=== PATIENT | female | born 1960 | race Caucasian/White ===

== ENCOUNTER 2016-10-02 06:00 | Inpatient (IN) | payer MEDICAID ==
[~2016-10-02] VITALS: Ht 167.6 cm; Wt 73.5 kg
[~2016-10-02 06:00] MED LIST: CIPRO500 MG PO; FOLIC ACID1 MG PO; IBUPROFEN800 MG PO; LIORESAL 10 MG10 MG PO; LIPITOR40 MG PO; METHOTREXATE2.5 MG PO; MOBIC7.5 MG PO; OXYCONTIN10 MG PO; PREDNISONE20 MG PO; VALIUM5 MG PO
--- NOTE | 2016-10-02 07:18 | NUR ---
PT ct's were delayed due to wanting labs and resp and xrays done first
--- NOTE | 2016-10-02 07:29 | NUR ---
PT'S CT OF ABD/PEL WITH CONTRAST DELEYED FURTHER DUE TO POOR IV ACCESS. WAITING FOR RN TO START NEW IV
[2016-10-02 08:46] LABS: BASOPHILS 0.1 % (0.0-2.0); EOSINOPHILS 0.4 % (0-7); HEMATOCRIT 28.7 % (36.0-48.0); IMMATURE GRANULOCYTES 0.3 % (0-5); LYMPHOCYTES 10.3 % (15-50); MCH 43.2 pg (26.0-34.0); MCHC 48.8 g/dL (31.0-37.0); MCV 88.6 fL (80.0-100.0); MEAN PLATELET VOLUME 8.9 fL (7.4-10.4); MONOCYTES 5.1 % (2-11); NEUTROPHILS 83.8 % (40-80); RBC 3.24 10x6/uL (4.00-5.40); RDW 14.4 % (11.5-14.5); WBC 10.5 10x3/uL (4.8-10.8)
[2016-10-02 08:47] LABS: PLATELET COUNT 146 10x3/uL (130-400)
[2016-10-02 08:59] LABS: CALC OSMOLALITY 285 mosm/kg (275-300); CALCIUM 8.9 mg/dL (8.5-10.1); CARBON DIOXIDE 17.5 mmol/L (21.0-32.0); CHLORIDE - SERUM 104 mmol/L (98-107); CREATININE - SERUM 0.8 mg/dL (0.6-1.3); GLUCOSE 137 mg/dL (74-106); POTASSIUM - SERUM 4.7 mmol/L (3.5-5.1); SODIUM 142 mmol/L (136-145); UREA NITROGEN 15 mg/dL (7-18); eGFR NON AFRICAN AMERICAN 79 mL/min (90-120)
[2016-10-02 09:09] LABS: UDS - AMPHET NEGATIVE QUAL (NEGATIVE); UDS - BARB NEGATIVE QUAL (NEGATIVE); UDS - BENZO NEGATIVE QUAL (NEGATIVE); UDS - COCAINE NEGATIVE QUAL (NEGATIVE); UDS - METH NEGATIVE QUAL (NEGATIVE); UDS - OPIATE NEGATIVE QUAL (NEGATIVE); UDS - PCP NEGATIVE QUAL (NEGATIVE); UDS - THC NEGATIVE QUAL (NEGATIVE)
[2016-10-02 10:04] LABS: APPEARANCE CLEAR (CLEAR); BACTERIA FEW /hpf (NONE SEEN); BILIRUBIN NEGATIVE (NEGATIVE); COLOR YELLOW (YELLOW); EPITHELIAL CELLS 0-5 /hpf (0-5); GLUCOSE NEGATIVE (NEGATIVE); KETONE NEGATIVE (NEGATIVE); LEUKOCYTE ESTERASE NEGATIVE (NEGATIVE); NITRITE NEGATIVE (NEGATIVE); PROTEIN NEGATIVE (NEGATIVE); RED CELLS - URINE 0-5 /hpf (0-5); UROBILINOGEN NORMAL (NORMAL); WHITE CELLS - URINE 0-5 /hpf (0-5)
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
--- NOTE | 2016-10-02 15:45 | NUR ---
REPORT REC'D FROM KAYLYNN RIVER, IN ER. ROOM READY AND AWAITING PT ARRIVAL.
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
[2016-10-02 16:45] VITALS: Ht 167.6 cm; Wt 73.5 kg
--- NOTE | 2016-10-02 18:20 | NUR ---
PRN DILAUDID ADMINISTERED PER PT COMPLAINTS OF 10/10 SHOULDER PAIN. WILL REASSESS.
--- NOTE | 2016-10-02 19:20 | NUR ---
PT SITTING UP IN BED, ASSESSMENT COMPLETED, DGS TO FOREHEAD CDI, DSG TO L ARM CDI WITH SLING IN PLACE, NO ACUTE DISTRESS NOTED, DENIES NEEDS AT THIS TIME, FALL PRECAUTIONS IN PLACE, CL IN REACH, WILL MONITOR
[2016-10-02 20:00] VITALS: BP 162/89
--- NOTE | 2016-10-02 21:21 | NUR ---
PRN DILAUDID GIVEN FOR C/O L ARM PAIN , JOHNNIE WELL, CL IN REACH
--- NOTE | 2016-10-02 21:45 | NUR ---
TAKEN BY RADIOLOGY FOR ORDERED CT SCAN
--- NOTE | 2016-10-02 23:51 | NUR ---
DENTAL FINANCIAL COORDINATOR INITIATED PER ORDERS, IV IN R AXILLARY AREA OCCLUDING, NEW SITE ACCESS IN R WRIST, 22G X 1 ATTEMPT, JOHNNIE WELL, REMINDED OF NPO STATUS CL IN REACH
[2016-10-03] VITALS (10 sets, daily range): BP systolic 108–156; BP diastolic 64–90
[2016-10-03 06:10] LABS: BASOPHILS 0.2 % (0.0-2.0); EOSINOPHILS 0.8 % (0-7); HEMOGLOBIN 12.7 g/dL (12-16); IMMATURE GRANULOCYTES 0.1 % (0-5); LYMPHOCYTES 20.6 % (15-50); MCH 27.8 pg (26.0-34.0); MCV 89.7 fL (80.0-100.0); MEAN PLATELET VOLUME 8.9 fL (7.4-10.4); MONOCYTES 8.9 % (2-11); NEUTROPHILS 69.4 % (40-80); RDW 14.5 % (11.5-14.5); WBC 9.8 10x3/uL (4.8-10.8)
[2016-10-03 06:39] LABS: PLATELET COUNT 226 10x3/uL (130-400); RBC 4.57 10x6/uL (4.00-5.40)
[2016-10-03 06:55] LABS: APTT 26.4 SECONDS (22.8-39.4)
[2016-10-03 06:58] LABS: INR 0.99 (0.85-1.17); PROTIME 12.9 SECONDS (11.6-15.0)
[2016-10-03 07:11] LABS: ALBUMIN 3.4 g/dL (3.4-5.0); ALKALINE PHOSPHATASE 120 U/L (46-116); ALT (SGPT) 34 U/L (10-68); BILIRUBIN - TOTAL 0.49 mg/dL (0.2-1.3); CALCIUM 8.7 mg/dL (8.5-10.1); CHLORIDE - SERUM 103 mmol/L (98-107); CREATINE KINASE 338 UL (21-215); CREATININE - SERUM 0.7 mg/dL (0.6-1.3); GLUCOSE 128 mg/dL (74-106); MAGNESIUM - SERUM 2.2 mg/dL (1.8-2.4); POTASSIUM - SERUM 4.4 mmol/L (3.5-5.1); PROTEIN - SERUM 7.1 g/dL (6.4-8.2); SODIUM 140 mmol/L (136-145); eGFR NON AFRICAN AMERICAN > 90 mL/min (90-120)
[2016-10-03 07:12] LABS: CALC OSMOLALITY 283 mosm/kg (275-300); CARBON DIOXIDE 24.5 mmol/L (21.0-32.0); CKMB 2.1 U/L (0.0-3.6); UREA NITROGEN 20 mg/dL (7-18)
--- NOTE | 2016-10-03 07:27 | NUR ---
SPOKE WITH KAYLYNN PEÑA, ABOUT PREOP ORDERS. ORDERS REC'D FOR PREOP MEDS. WILL ADMINISTERER ORDERED. ALERTED PT THAT SURGERY WILL BE EARLY THIS MORNING. PT HAS BEEN NPO SINCE AR. BED LOW, CALL LIGHT IN REACH, DENIES NEEDS. CONSENTS ON CHART AND SIGNED.
--- NOTE | 2016-10-03 08:02 | NUR ---
PT PREOPED AND TAKEN TO SURGERY BY KAYLYNN MILLER, AND JOE PEÑA.
--- NOTE | 2016-10-03 10:15 | NUR ---
PT REC'D BACK TO ROOM FROM SURGERY. AAOX4. SLING AND SPLINT TO L ARM. PT ABLE TO MOVE FINGERS TO L HAND AND HAS BRISK CAP REFILL <3 SECONDS. VSS. NO COMPLAINTS OF PAIN. BED LOW, CALL LIGHT IN REACH, DENIES NEEDS. CPOC.
--- NOTE | 2016-10-03 11:03 | NUR ---
PT AWAKE AND ALERT. INCENTIVE SPIROMETER TAUGHT AT THIS TIME. PT ABLE TO RETURN DEMONSTRATION. PULLING 1200. TOLD PT TO PERFORM EXERCISE 5 TIMES EVERY HOUR WHILE AWAKE. BED LOW, CALL LIGHT IN REACH, VSS. CPOC.
--- NOTE | 2016-10-03 11:45 | NUR ---
PATIENT IN BED WITH NO COMPLAINTS AT THIS TIME. IV INTACT. CALL LIGHT WITHIN REACH.
--- NOTE | 2016-10-03 19:25 | NUR ---
PT SITTING UP IN BED, ASSESSMENT COMPLETED, NO ACUTE DISTRESS NOTED, SPLINT AND SLING IN PLACE TO L ARM, DENIES NEEDS AT THIS TIME, SR'S UP, CL IN REACH, WILL MONITOR
--- NOTE | 2016-10-03 21:05 | NUR ---
PT REQUESTED TO GO DOWNSTAIRS TO VISIT FRIEND, AUDIO VISUAL PROJECT MANAGER DISCONNECTED, WHEELED FROM ROOM BY VISITOR, NO DISTRESS NOTED
--- NOTE | 2016-10-03 22:41 | NUR ---
PRN RESTORTIL GIVEN ALONG WITH ROUTINE MEDS, JOHNNIE WELL, CL IN REACH
--- NOTE | 2016-10-03 23:33 | NUR ---
SITTTING UP IN BED WATCHING TV, DENIES NEEDS, CL IN REACH
--- NOTE | 2016-10-04 01:42 | NUR ---
RESTING WITH EYES CLOSED, RESP WITH EASE, NO DISTRESS NOTED, SR'S UP, CL IN REACH
[2016-10-04 04:00] VITALS: BP 144/84
[2016-10-04 08:04] VITALS: BP 131/68
--- NOTE | 2016-10-04 08:45 | NUR ---
AWAKE AND ALERT. PT PLACED ON BED VAZQUEZ AND VOIDED WITHOUT DIFFICULTY. REFUSES SCD'S AS400 ANALYST IN USE FOR PAIN CONTROL. ASSESSMENT PERFORMED PER FLOWSHEET. REMAINS AWAKE AND ALERT. CALL LIGHT IN REACH. PT TRANSFERRED TO WHEELCHAIR AT THIS TIME. WILL CONTINUE WITH PLAN OF CARE.
--- NOTE | 2016-10-04 10:18 | NUR ---
CM REASSESSMENT NOTE: PATIENT STATED SHE WOULD LIKE TO GO TO [facility]. PATIENT HAS MEDICAID AND SHOULD HAVE MEDICARE. [place] IS CHECKING ON THE MEDICARE AND REFERRAL WILL BE SENT IF PATIENT QUALIFIES. CM WILL CONTINUE TO FOLLOW PATIENT WITH D/C NEEDS AND PLANS.
[2016-10-04 12:11] VITALS: BP 167/83
--- NOTE | 2016-10-04 13:10 | OP ---
PATIENT NAME: CAMILLE CHOI MEDICAL RECORD: [id number] :62 LOCATION:[id number] ADMISSION DATE:10/02/16 SURGEON: WILLIAMS RAI MD DATE OF OPERATION: 10/02/2016 PREOPERATIVE DIAGNOSIS: Transcondylar elbow fracture of the left elbow. POSTOPERATIVE DIAGNOSIS: Transcondylar elbow fracture of the left elbow. PROCEDURE: Open reduction internal fixation of left elbow. SURGEON: Williams Rai MD ANESTHESIA: General. INTRAOPERATIVE COMPLICATIONS: None. SUMMARY OF PATHOLOGIC FINDINGS: The patient had transcondylar elbow fracture consistent with the preoperative x-rays and CT scans. OPERATIVE SUMMARY IN DETAIL: After obtaining the appropriate preoperative orthopedic surgery consents as well as anesthetic consultation, evaluation and clearance, the patient was brought to the operating room and placed on the operating table in supine position. After general laryngeal mask was administered, the patient was placed in a right lateral decubitus position. All pressure points were well padded to include down leg peroneal pad as well as axillary roll. She was held firmly to the operating table using the vacuum pack suction system. The patient's left upper extremity elbow was prepared with a tourniquet about the proximal aspect. It was then prepped and draped in a routine sterile fashion. Under the direct radiographic evaluation, the patient's elbow was reduced both on AP and lateral planes. Guidewires for the cannulated screw system were placed at the medial column and the lateral column. Care being taken to avoid the ulnar nerve. Medial column and lateral column was again evaluated on both AP and lateral planes, two 60 mm compression screws were placed under direct fluoroscopic visualization after incision had been made. Having completed this, final radiographs were submitted. The incision was closed with 4-0 Prolene. Sterile dressings were applied. The patient was awakened, taken to recovery room in stable condition. Note, the tourniquet was not deployed during the case. All final needle and sponge counts were correct. TRANSINT:[id number] Voice Confirmation ID: [id number] DOCUMENT ID: [id number] WILLIAMS RAI MD at 1310 CC: [id number] DICTATION DATE: 10/03/16927 SLAUGHTERER RELIGIOUS RITUAL: 10/03/16 1130 ADM IN [address] [place] [address]
[2016-10-04 15:10] VITALS: BP 117/69
--- NOTE | 2016-10-04 19:30 | NUR ---
SITTING IN WHEELCHAIR, ASSESSMENT COMPLETED, NO ACUTE DISTRESS NOTED, CL IN REACH, WILL MONITOR
--- NOTE | 2016-10-04 20:12 | NUR ---
PT REMOVED TELEMETRY, STATES " IT IS GETTING ON MY NERVES"
--- NOTE | 2016-10-04 21:10 | NUR ---
TAKEN OUTSIDE VIA WHEELCHAIR BY FRIEND, STATES " I TOOK THAT NICOTINE PATCH OFF IT MAKES ME ITCH AND MAKES ME CRAZY"
--- NOTE | 2016-10-04 22:07 | NUR ---
PT PULLED IV TO R WRIST OUT, CATH INTACT, 22 G SITED IN R UPPER ARM JOHNNIE WELL, MEDS GIVEN PER MAR EXCEPT FOR THE REFUSED ONE, JOHNNIE WELL, CL IN REACH
--- NOTE | 2016-10-04 23:18 | NUR ---
PRN BENADRYL GIVEN PER REQUEST, JOHNNIE WELL, CL IN REACH
--- NOTE | 2016-10-05 01:09 | NUR ---
LYING IN BED AWAKE, DENIES NEEDS, SR'S UP, CL IN REACH
--- NOTE | 2016-10-05 03:40 | NUR ---
RESTING WITH EYES CLOSED, NO DISTRESS NOTED, FALL PRECAUTIONS IN PLACE, CL IN REACH
[2016-10-05 04:00] VITALS: BP 183/113
--- NOTE | 2016-10-05 08:22 | NUR ---
PATIENT IN THE BED, TRANSFERED FROM THE WHEELCHAIR INTO BED INDEPENDENTLY. SLING IS UNDER HER PILLOW. DRESSING ON THE FLOOR. SPLINT IN THE WHEELCHAIR. I STATED "WHAT HAPPENED?" SHE STATED "I HAD TO TAKE IT OFF IT WAS NOT RIGHT IT WAS CUTTING INTO MY HAND. DO NOT TELL ANYONE PLEASE. I WILL PUT IT BACK ON." I THREW THE DRESSING IN THE TRASH TRIED TO TALK TO PATIENT SHE TALKED OVER ME SAYING "GET THAT OUT OF THE TRASH I HAVE TO HAVE IT." I STATED "I AM NOT GOING TO PUT THE SAME DRESSING BACK ON YOU I WILL GET NEW STUFF. YOU CANNOT JUST TAKE OFF YOUR DRESSING, YOU ARE GOING TO END UP WITH AN INFECTION. IF YOU GET AN INFECTION THAT CAN BE VERY SERIOUS." PATIENT KEPT TALKING WHILE I WAS TALKING. SAYING "WELL IT HAD TO COME OFF I WILL PUT IT BACK ON OR HAVE THE DOCTOR PUT IT ON. WHERE IS MY DOCTOR. I HAVE NOT SEEN HIM. MY RIGHT ARM IS MESSED UP TO AND THEY HAVE NOT XRAYED IT LIKE THEY SAID THEY DID."
--- NOTE | 2016-10-05 08:30 | NUR ---
TANK, NURSE FOR GAVE A VERBAL ORDER STATING :APPLY XEROFORM TO INCISION SITE. WRAP WITH CAST PADDING. APPLY SPLINT. WRAP LOOSELY WITH KERLIX. THEN WRAP WITH SUE WRAP. FOLLOWED THE INSTRUCTIONS LISTED ABOVE.
[2016-10-05 08:39] VITALS: BP 191/98
[2016-10-05] MEDS ORDERED: OXYCODONE HCL10 MG PO (08:53)
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
[2016-10-05 11:43] VITALS: BP 162/105
--- NOTE | 2016-10-05 13:59 | NUR ---
PATIENT NOT IN ROOM. ANOTHER STAFF MEMBER STATED "I SAW THE PATIENT IN THE [place] A FEW MINUTES AGO AND SHE SAID SHE IS GOING TO [facility] TO GO ODEN HER CHECK."
--- NOTE | 2016-10-05 14:05 | NUR ---
CALLED 'S NURSE TANK DOWNS. NOTIFIED HER THAT THE PATIENT LEFT AND THAT THE PATIENT WAS NOT ACCEPTED INTO [facility].
--- NOTE | 2016-10-05 14:44 | NUR ---
PATIENT IS IN HER ROOM. PATIENT STATED "I DID NOT LEAVE. I JUST WENT OUTSIDE. I HAD TO GET OUT OF HERE FOR A LITTLE WHILE. I WAS GOING TO GO TO [facility] BUT I COULD NOT GET ANYONE TO TAKE ME. I STILL NEED A RIDE TO GO GET MY MONEY." I STATED "YOU CANNOT LEAVE THE HOSPITAL WHEN YOU ARE A PATIENT." SHE STATED "WELL I DO NOT KNOW WHAT Y'ALL EXPECT ME TO DO I HAVE TO GO GET MY MONEY." PATIENT STATED SHE IS GOING TO TAKE A NAP. PATIENT GOT INTO THE BED.
--- NOTE | 2016-10-05 15:59 | NUR ---
CM REASSESSMENT NOTE: [email or web address] AND [facility], ALSO DENIED BY [facility]. [facility] IS LOOKING AT REFERRAL. PATIENT HAS NO MEDICARE BENEFITS BECAUSE SHE HAS NEVER WORKED. CM CALLED THE [facility] TO SEE IF ANY APARTMENTS WERE AVAILABLE AND SHE STATED SHE DID NOT THINK SO THAT IT WOULD BE TUESDAY BEFORE ANYONE WOULD BE AVAILABLE TO DISCUSS AVAILABILITY. CM CALLED THE [facility] (PER PATIENT REQUEST) AND LEFT MESSAGE - NO ONE HAS CALLED BACK FROM THAT APARTMENT COMPLEX. PATIENT STATED SHE HAS NO FRIENDS TO CALL FOR HELP. CM WILL CONTINUE TO FOLLOW PATIENT WITH D/C NEEDS AND PLANS.
[2016-10-05 17:04] VITALS: BP 169/89
[2016-10-05 19:00] VITALS: BP 138/83
--- NOTE | 2016-10-05 19:00 | NUR ---
PATIENT IN BED WATCHING TV. HOB 45 DEGREES. PATIENT IS AWAKE BUT DROWSY. RR EVEN AND UNLABORED. 0 S/S OF DISTRESS. STATES PAIN IS A 10/10. DRESSING TO LEFT ELBOW CDI. SLING TO LUE. SRX2. BED LOW. CALL LIGHT WITHIN REACH.
--- NOTE | 2016-10-05 22:00 | NUR ---
ASSESSMENT COMPLETE. NIGHTTIME MEDS GIVEN. PEPCID HELD BECAUSE IV OUT. OXY IR GIVEN FOR PAIN. WILL REASSESS.
[2016-10-06 04:00] VITALS: BP 142/86
--- NOTE | 2016-10-06 04:00 | NUR ---
PATIENT SLEEPING WITH NO DISTRESS NOTED. CALL LIGHT WITHIN REACH.
--- NOTE | 2016-10-06 07:48 | NUR ---
PATIENT IS RESTING QUIETLY WITH EYES CLOSED. NO SIGNS OF DISTRESS NOTED. BED IN LOWEST POSITION, CALL LIGHT IN REACH. BED RAILS UP X'S 2.
--- NOTE | 2016-10-06 08:30 | NUR ---
CM REASSESSMENT NOTE: CM TALKED WITH PATIENT REGARDING [facility] AT [place] AND PATIENT AGREED-REFERRAL SENT.
[2016-10-06 08:33] VITALS: BP 149/93
[2016-10-06 12:00] VITALS: BP 120/70
--- NOTE | 2016-10-06 13:53 | NUR ---
CM REASSESSMENT NOTE: PATIENT WAS DENIED AT [place]. REFERRAL SENT TO [facility] [place]. THEY ARE COMING TO HOSPITAL TO INTERVIEW PATIENT AROUND 2:00.
--- NOTE | 2016-10-06 14:07 | NUR ---
NUTRITION MONITORING & EVAL CHART REVIEWED. PT TOLERATING REG DIET, 100% INTAKE RECENT MEALS. REMAINS AT LOW NUTRITIONAL RISK. RD FOLLOWING
--- NOTE | 2016-10-06 14:18 | NUR ---
CM REASSESSMENT NOTE: PATIENT HAS BEEN ACCEPTED TO [facility] [place]. PATIENT WAS EVALUATED AND AGREED TO TERMS OF THE HOME. [facility] WILL BE CALLING THIS AFTERNOON WITH A SK[facility] BOX TOE TIME FOR THE PATIENT.
--- NOTE | 2016-10-06 16:11 | NUR ---
CM REASSESSMENT NOTE: PATIENT IS DISCHARGING TO [facility] BY FACILITY [facility].
== END 2016-10-06 17:14 | disposition home or self-care (01) | DRG 493 ==
LOC: D.ER 06:00 → D.MS 11:57
PROVIDERS: Family Medicine; Orthopaedic Surgery; ADMIT Surgery
PROC: 0HQ1XZZ Repair Face Skin, External Approach (ICD-10-PCS; principal; 2016-10-02)
PROC: 0PSG04Z Reposition Left Humeral Shaft with Internal Fixation Device, Open Approach (ICD-10-PCS; 2016-10-02)
DX: S42.472A Displaced transcondylar fracture of left humerus, initial encounter for closed fracture (principal); N20.1 Calculus of ureter; S42.032A Displaced fracture of lateral end of left clavicle, initial encounter for closed fracture; V47.0XXA Car driver injured in collision with fixed or stationary object in nontraffic accident, initial encounter; S01.81XA Laceration without foreign body of other part of head, initial encounter; S80.02XA Contusion of left knee, initial encounter; S20.219A Contusion of unspecified front wall of thorax, initial encounter; E78.00 Pure hypercholesterolemia, unspecified; M06.9 Rheumatoid arthritis, unspecified; G47.00 Insomnia, unspecified; F17.200 Nicotine dependence, unspecified, uncomplicated